=== PATIENT | male | born 1955 | race Caucasian/White ===

== ENCOUNTER 2016-11-13 10:39 | Inpatient (IN) | payer OTHER ==
[~2016-11-13] VITALS: Ht 170.2 cm; Wt 88.9 kg
[~2016-11-13 10:39] MED LIST: ASPIRIN325 MG PO; Ascorbic Acid,Ester- PO; COZAAR50 MG PO; Coumadin,Jantoven PO; Cozaar PO; GARLIC1000 MG PO; GINSENG PO; Garlic PO; Humibid LA,Mucinex PO; MOBIC7.5 MG PO; MUCINEX600 MG PO; Percocet 5/325,Endoc PO; SINGULAIR10 MG PO; Singulair PO; ZOCOR20 MG PO; Zocor PO; celeBREX PO
[2016-11-13 11:20] VITALS: BP 143/73
[2016-11-13 11:32] VITALS: BP 143/73
[2016-11-13 22:20] VITALS: BP 102/60
[2016-11-14 03:50] VITALS: BP 103/69
[2016-11-14 07:33] VITALS: BP 117/78
[2016-11-14 11:00] VITALS: BP 116/72
[2016-11-14 12:19] LABS: GFR ESTIMATE (CALCULATED) > 59 mL/min/
[2016-11-14 15:10] VITALS: BP 117/80
[2016-11-14 20:00] VITALS: BP 133/63
[2016-11-14 23:35] VITALS: BP 107/56
[2016-11-15 04:32] VITALS: BP 102/59
[2016-11-15 08:48] VITALS: BP 129/67
[2016-11-15] MEDS ORDERED: OXYCODONE HCL5 MG PO (09:28)
== END 2016-11-15 12:40 | disposition home or self-care (01) | DRG 499 ==
LOC: SDC 10:39 → 2SOUTH 15:13 → SDC 15:59 → 3EAST 22:09
PROVIDERS: Physician Assistant
DX: M87.051 Idiopathic aseptic necrosis of right femur (principal); M89.751 Major osseous defect, right pelvic region and thigh; G89.18 Other acute postprocedural pain; M19.90 Unspecified osteoarthritis, unspecified site; R33.9 Retention of urine, unspecified; I10 Essential (primary) hypertension; E78.00 Pure hypercholesterolemia, unspecified; J44.9 Chronic obstructive pulmonary disease, unspecified; Z96.651 Presence of right artificial knee joint; Z82.49 Family history of ischemic heart disease and other diseases of the circulatory system; Z84.1 Family history of disorders of kidney and ureter; Z82.61 Family history of arthritis
CPT/HCPCS: 73501; 76000; 82565; 94799; G0378; J0131; J0330; J0690; J1170; J1650; J2250; J2270; J2405; J3010; J7120; S0020

== ENCOUNTER 2017-01-13 05:12 | Inpatient (IN) | payer OTHER ==
[~2017-01-13] VITALS: Ht 167.6 cm; Wt 86.0 kg
[~2017-01-13 05:12] MED LIST changes: +CO Q10100 MG PO; +DAILY VALUE1 EACH PO; +FISH OIL 1,0001 EAC7 PO; +IRON325 M1 PO; +L-LYSINE500 M1 PO; +NAPROSYN500 MG PO; +OXYCODONE HCL5 MG PO; +TYLENOL WITH C1 EACH PO; +VITAMIN C1000 MG PO
[2017-01-13 06:12] VITALS: BP 108/59
[2017-01-13 10:11] LABS: HEMATOCRIT 40.4 % (38.0-50.0); MCV 93.5 FL (86-99)
[2017-01-13 13:00] VITALS: BP 134/68
[2017-01-13 13:25] VITALS: BP 128/68
[2017-01-13 15:36] VITALS: BP 120/60
[2017-01-13 19:50] VITALS: BP 106/56
[2017-01-14 00:15] VITALS: BP 106/57
[2017-01-14 04:06] VITALS: BP 120/63
[2017-01-14 05:33] LABS: HEMATOCRIT 35.9 % (38.0-50.0); MCV 92.5 FL (86-99)
[2017-01-14 06:17] LABS: ANION GAP 8 MEQ/L (2-14); CHLORIDE 104 MEQ/L (99-109); GFR ESTIMATE (CALCULATED) > 59 mL/min/; GLUCOSE 121 mg/dL (70-99); POTASSIUM 4.1 MEQ/L (3.7-5.4); SAMPLE HEMOLYSIS CHECK 0; SAMPLE ICTERIC CHECK 0; SAMPLE LIPEMIA CHECK 0; SODIUM 136 MEQ/L (136-147); UREA NITROGEN (BUN) 19 mg/dL (9-23)
[2017-01-14 07:55] VITALS: BP 133/75
[2017-01-14] MEDS ORDERED: BENADRYL25 MG PO (10:14)
[2017-01-14] MEDS ORDERED: LIDOCAINE700 MG TD (10:15)
[2017-01-14] MEDS ORDERED: OXYCODONE HCL5 MG PO (10:15)
[2017-01-14] MEDS ORDERED: SENNA PLUS TAB1 EACH PO (10:15)
[2017-01-14] MEDS ORDERED: XARELTO10 MG PO (10:15)
[2017-01-14 11:46] VITALS: BP 142/70
== END 2017-01-14 14:21 | disposition home health service (06) | DRG 470 ==
LOC: 3WEST 05:12 → 2SOUTH 05:12 → 3WEST 10:23 → 2SOUTH 10:52 → 3WEST 01-14 14:21
PROVIDERS: Orthopaedic Surgery
PROC: 0SR904A Replacement of Right Hip Joint with Ceramic on Polyethylene Synthetic Substitute, Uncemented, Open Approach (ICD-10-PCS; principal; 2017-01-13)
DX: M16.11 Unilateral primary osteoarthritis, right hip (principal); M87.9 Osteonecrosis, unspecified; I10 Essential (primary) hypertension; E78.00 Pure hypercholesterolemia, unspecified; J44.9 Chronic obstructive pulmonary disease, unspecified; G47.33 Obstructive sleep apnea (adult) (pediatric); F17.210 Nicotine dependence, cigarettes, uncomplicated; Z96.653 Presence of artificial knee joint, bilateral; Z98.1 Arthrodesis status; Z86.718 Personal history of other venous thrombosis and embolism
CPT/HCPCS: 80048; 85014; 85018; J0131; J0690; J1100; J1885; J2250; J3010; J7050; J7120; S0020